=== PATIENT | female | born 1985 ===

== ENCOUNTER 2017-04-08 17:00 | Emergency (ER) | payer OTHER, SELFPAY ==
[2017-04-08 17:08] VITALS: BP 158/120; PULSE 98; RESP 18; TEMP 99.2; O2SAT 99
[2017-04-08] MEDS ORDERED: Tmp-Smz 800 mg-160 mg DS Tab PO STA (17:30)
--- NOTE | 2017-04-08 17:33 | ED PDOC ---
HPI: Female Pain Time Seen by Provider: 04/08/17 17:15 Chief Complaint (Nursing): Female Genitourinary Chief Complaint (Provider): dysuria History Per: Patient History/Exam Limitations: no limitations Onset/Duration Of Symptoms: Days ( x 4) Current Symptoms Are (Timing): Still Present Quality Of Discomfort: Burning Associated Symptoms: Fever, Diarrhea, Urinary Symptoms. denies: Nausea, Vomiting Additional Complaint(s): Darlin Melo is a 32 year old female, recently diagnosed with hypertension, who presents to the ED with complaints of dysuria with associated frequency, itching, pelvic pain, fever and diarrhea ongoing for the past 4 days. Patient reports fever resolved same day and diarrhea resolved the following day but other symptoms continue. Patient denies any nausea or vomiting. Patient reports taking uricalm 99.5 mg with minimal relief and reports a history of UTI in the past. PMD: Denny Moore MD Abnormal Vaginal Bleeding: No Past Medical History Reviewed: Historical Data, Nursing Documentation, Vital Signs Vital Signs: Last Vital Signs Temp 99.2 F 04/08/17 17:07 Pulse 98 H 04/08/17 17:07 Resp 18 04/08/17 17:07 BP 158/120 H 04/08/17 17:07 Pulse Ox 99 04/08/17 17:07 - Medical History PMH: HTN - Surgical History Surgical History: No Surg Hx - Family History Family History: States: Unknown Family Hx - Social History Current smoker - smoking cessation education provided: No Alcohol: None Drugs: Denies - Home Medications Home Medications: Ambulatory Orders Medication Instructions Recorded Cephalexin [Keflex] 500 mg PO TID #15 cap 12/03/14 Miconazole Nitrate [Monistat 3] 200 mg VG DAILY #3 sup 12/03/14 Phenazopyridine [Pyridium] 200 mg PO TID #9 tab 04/08/17 Sulfamethoxazole/Trimethoprim 1 tab PO BID #14 tab 04/08/17 [Bactrim DS 800 mg-160 mg] - Allergies Allergies/Adverse Reactions: Allergies Allergy/AdvReac Type Severity Reaction Status Date / Time No Known Allergies Allergy Verified 04/08/17 17:06 Review of Systems ROS Statement: Except As Marked, All Systems Reviewed And Found Negative Constitutional: Positive for: Fever (resolved) Gastrointestinal: Positive for: Diarrhea (resolved ). Negative for: Nausea, Vomiting Genitourinary Female: Positive for: Dysuria, Frequency, Pelvic Pain, Other ( itching ). Negative for: Incontinence, Hematuria, Vaginal Discharge, Vaginal Bleeding Physical Exam - Reviewed Nursing Documentation Reviewed: Yes Vital Signs Reviewed: Yes - Physical Exam Appears: Positive for: Well, Non-toxic, No Acute Distress Skin: Positive for: Normal Color, Warm, Dry ENT: Positive for: Normal ENT Inspection Neck: Positive for: Normal, Painless ROM, Supple Cardiovascular/Chest: Positive for: Regular Rate, Rhythm Respiratory: Positive for: CNT, Normal Breath Sounds Gastrointestinal/Abdominal: Positive for: Bowel Sounds, Soft, Tenderness ( bilateral suprapubic ). Negative for: Mass, Distended, Guarding, Rebound Back: Positive for: L CVA Tenderness Neurologic/Psych: Positive for: Alert, Oriented - Laboratory Results Urine POC: Negative Urine dip results: Positive for: Nitrate - ECG O2 Sat by Pulse Oximetry: 99 (RA) Pulse Ox Interpretation: Normal Medical Decision Making Medical Decision Making: Initial Impression: UTI Initial Plan: * urine * urine dipstick * urine culture * urinalysis * pyridium * bactrim tab * reevaluation Scribe Attestation: Documented by Liz Sifuentes, acting as a scribe for Bernadine Mathur MD. Provider Scribe Attestation: All medical record entries made by the Scribe were at my direction and personally dictated by me. I have reviewed the chart and agree that the record accurately reflects my personal performance of the history, physical exam, medical decision making, and the department course for this patient. I have also personally directed, reviewed, and agree with the discharge instructions and disposition. Disposition - Clinical Impression Clinical Impression: UTI (urinary tract infection) - Patient ED Disposition Is Patient to be Admitted: No Doctor Will See Patient In The: Office Counseled Patient/Family Regarding: Diagnosis, Need For Followup, Rx Given - Disposition Referrals: Denny De Paz MD [Medical Doctor] - Disposition: Routine/Home Disposition Time: 17:41 Condition: STABLE Prescriptions: Phenazopyridine [Pyridium] 200 mg PO TID #9 tab Sulfamethoxazole/Trimethoprim [Bactrim DS 800 mg-160 mg] 1 tab PO BID #14 tab Instructions: Urinary Tract Infection in Women (ED) - POA Present On Arrival: None
[2017-04-08] MEDS ORDERED: Tmp-Smz 800 mg-160 mg DS Tab ONE (17:35)
[2017-04-08 18:51] LABS: RBC URINE < 1 /hpf (0-3); URINE BILIRUBIN NEGATIVE (NEGATIVE); URINE BLOOD SMALL (NEGATIVE); URINE COLOR AMBER (YELLOW); URINE GLUCOSE (UA) 150 mg/dL (Normal); URINE KETONE NEGATIVE (NEGATIVE); URINE LEUKOCYTE ESTERASE MOD Leu/uL (Negative); URINE PROTEIN 100 mg/dL (NEGATIVE); WBC URINE 19 /hpf (0-5)
== END 2017-04-08 18:06 | disposition home or self-care (01) ==
LOC: H.ER 17:00
DX: N39.0 Urinary tract infection, site not specified (principal); R50.9 Fever, unspecified

== ENCOUNTER 2017-09-26 08:15 | Emergency (ER) | payer SELFPAY ==
[2017-09-26 08:27] VITALS: RESP 20
[2017-09-26 08:39] VITALS: BP 147/64; O2SAT 98
[2017-09-26 09:39] LABS: BASO # 0.1 K/uL (0.0-0.2); BASO % 0.7 % (0.0-2.0); EOS # 0.1 K/uL (0.0-0.7); EOS % 1.1 % (0.0-4.0); HEMATOCRIT 40.6 % (34.0-47.0); LYMPH # 1.3 K/uL (1.0-4.3); LYMPH % 15.3 % (20.0-40.0); MEAN CELL VOLUME 87.5 fl (81.0-99.0); MEAN CORPUSCULAR HEMOGLOBIN 28.6 pg (27.0-31.0); MEAN CORPUSCULAR HGB CONC 32.6 g/dL (33.0-37.0); MEAN PLATELET VOLUME 8.3 fl (7.2-11.7); MONO # 0.4 K/uL (0.0-0.8); MONO % 4.6 % (0.0-10.0); NEUT # 6.4 K/uL (1.8-7.0); NEUT % 78.3 % (50.0-75.0); NRBC % 0.1 % (0.0-0.0); RED CELL DISTRIBUTION WIDTH 14.9 % (11.5-14.5); WHITE BLOOD COUNT 8.2 K/uL (4.8-10.8)
--- NOTE | 2017-09-26 09:51 | ED PDOC ---
HPI: SOB/CHF/COPD Time Seen by Provider: 09/26/17 08:47 Chief Complaint (Nursing): Shortness Of Breath Chief Complaint (Provider): Chest pressure History Per: Patient History/Exam Limitations: no limitations Onset/Duration Of Symptoms: Days (3), Persistent Current Symptoms Are (Timing): Still Present Quality: Pressure Additional Complaint(s): 32yo female with past medical history of hypertension, presents to ED for evaluation of chest pressure for the past 3 days. Patient states the pain is present most of the time and is associated with difficulty breathing. She denies any chest pain, wheeze, cough, fever, dizziness, leg swelling. She denies any other medical complaints. PMD: Dr. Knight Past Medical History Reviewed: Historical Data, Nursing Documentation, Vital Signs Vital Signs: Last Vital Signs Temp 98 F 09/26/17 11:30 Pulse 72 09/26/17 11:30 Resp 20 09/26/17 11:34 BP 147/64 09/26/17 08:39 Pulse Ox 98 09/26/17 11:30 - Medical History PMH: HTN - Surgical History Surgical History: No Surg Hx - Family History Family History: States: No Known Family Hx - Home Medications Home Medications: Ambulatory Orders Medication Instructions Recorded Cephalexin [Keflex] 500 mg PO TID #15 cap 12/03/14 Miconazole Nitrate [Monistat 3] 200 mg VG DAILY #3 sup 12/03/14 Phenazopyridine [Pyridium] 200 mg PO TID #9 tab 04/08/17 Sulfamethoxazole/Trimethoprim 1 tab PO BID #14 tab 04/08/17 [Bactrim DS 800 mg-160 mg] - Allergies Allergies/Adverse Reactions: Allergies Allergy/AdvReac Type Severity Reaction Status Date / Time No Known Allergies Allergy Verified 09/26/17 08:35 Curb-65 Severity Score - CURB-65 Severity Score Confusion: No Bun >19mg/dl (>7mmol/L): No Respiratory Rate greater than/equal to 30: No Systolic BP <90 or Diastolic BP less than/equal 60mmHg: No Age >64: No Curb-65 Score: 0 Percentage 30-day mortality: 0.6% Wells Criteria for PE - Wells Criteria for Pulmonary Embolism Clinical Signs and Symptoms of DVT: No P.E is #1 Diagnosis, or Equally Likely: No Heart Rate >100: No Immobilization at least 3 days;Surgery previous 4 weeks: No Previous, objectively diagnosed PE or DVT: No Hemoptysis: No Malignancy w/treatment within 6 months, or palliative: No Total Score: 0 Review of Systems ROS Statement: Except As Marked, All Systems Reviewed And Found Negative Constitutional: Negative for: Fever, Chills Cardiovascular: Positive for: Other (chest pressure). Negative for: Chest Pain Respiratory: Positive for: Shortness of Breath Physical Exam - Reviewed Nursing Documentation Reviewed: Yes Vital Signs Reviewed: Yes - Physical Exam Appears: Positive for: Non-toxic, No Acute Distress Head Exam: Positive for: ATRAUMATIC, NORMAL INSPECTION, NORMOCEPHALIC Skin: Positive for: Normal Color, Warm, Dry Eye Exam: Positive for: Normal appearance, EOMI Neck: Positive for: Supple Cardiovascular/Chest: Positive for: Regular Rate, Rhythm. Negative for: Tachycardia Respiratory: Positive for: Normal Breath Sounds. Negative for: Wheezing, Respiratory Distress Gastrointestinal/Abdominal: Positive for: Soft. Negative for: Tenderness Extremity: Positive for: Normal ROM Neurologic/Psych: Positive for: Alert, Oriented - Laboratory Results Result Diagrams: 09/26/17 09:30 09/26/17 09:30 - ECG ECG: Positive for: Interpreted By Me, Viewed By Me ECG Rhythm: Positive for: Normal QRS, Normal ST Segment, Sinus Rhythm. Negative for: ST/T Changes Rate: 84 O2 Sat by Pulse Oximetry: 98 (RA) Pulse Ox Interpretation: Normal - Radiology X-Ray: Viewed By Me, Read By Radiologist X-Ray Interpretation: No Acute Disease Medical Decision Making Medical Decision Making: Time: 911 Impression: Chest pressure, dyspnea Differential: ACS, PE, CHF Plan: -- EKG -- Labs -- Chest x-ray Reassess Scribe Attestation: Documented by Briana Keenan acting as a scribe for Jose Campos MD. Provider Attestation: All medical record entries made by the Scribe were at my direction and personally dictated by me. I have reviewed the chart and agree that the record accurately reflects my personal performance of the history, physical exam, medical decision making, and the department course for this patient. I have also personally directed, reviewed, and agree with the discharge instructions and disposition. Disposition - Clinical Impression Clinical Impression: Dyspnea - Patient ED Disposition Is Patient to be Admitted: No Doctor Will See Patient In The: Office Counseled Patient/Family Regarding: Studies Performed, Diagnosis, Need For Followup - Disposition Referrals: [facility] [Outside] Disposition: Routine/Home Disposition Time: 11:30 Condition: GOOD Additional Instructions: Return for worsening. Follow up with your PCP in 2-3 days. Instructions: Dyspnea (ED) LEANN Risk Score for UA/NSTEMI - LEANN Risk Score Age > 64: NO 3 or more CAD Risk Factors: NO Known CAD (Stenosis greater than 50%): NO Aspirin use in past 7 days: NO Severe Angina: NO EKG ST changes greater than 0.5mm: NO Positive Cardiac Marker: NO LEANN Score: 0 % risk at 14 days of: all cause mortality, new or recurrent WI, or severe recurrent ischemia requiring urgen revascularization: 5%
[2017-09-26 09:53] LABS: BLOOD UREA NITROGEN 19 mg/dl (7-17); CALCIUM 8.6 mg/dL (8.4-10.2); CARBON DIOXIDE 24 mmol/L (22-30); CHLORIDE 107 mmol/L (98-107); GFR AFRICAN-AMERICAN > 60; GLUCOSE,RANDOM 105 mg/dL (65-105); SODIUM 141 mmol/l (132-148)
--- NOTE | 2017-09-26 10:30 | RAD ---
HISTORY: dyspnea COMPARISON: None available. TECHNIQUE: Chest, one view. FINDINGS: Mild external artifact limits evaluation of the lung apices. LUNGS: No focal consolidation. Please note that chest x-ray has limited sensitivity for the detection of pulmonary masses. PLEURA: No significant pleural effusion identified. No definite pneumothorax . CARDIOVASCULAR: The cardiomediastinal silhouette appears within normal limits of size. OSSEOUS STRUCTURES: No acute osseous abnormality identified. VISUALIZED UPPER ABDOMEN: Unremarkable. OTHER FINDINGS: None. IMPRESSION: No focal consolidation, significant pleural effusion, or definite pneumothorax identified.
[2017-09-26] MEDS ORDERED: Potassium Chloride 20 mEq ER Tab PO ONE (11:20)
[2017-09-26 11:34] VITALS: TEMP 98
--- NOTE | 2017-09-26 12:00 | CARD ---
APPROVED REPORT EKG Measurement Heart [id number] <Conclusion> Normal sinus rhythm Cannot rule out Inferior infarct, age undetermined Abnormal ECG
[2017-10-05 11:25] VITALS: PULSE 84
== END 2017-09-26 11:35 | disposition home or self-care (01) ==
LOC: H.ER 08:15
DX: R06.02 Shortness of breath (principal); R07.89 Other chest pain; R06.00 Dyspnea, unspecified; I10 Essential (primary) hypertension

== ENCOUNTER 2017-12-07 20:03 | Emergency (ER) | payer SELFPAY ==
[2017-12-07 20:12] VITALS: BMI 24.1
[2017-12-07] MEDS ORDERED: Sodium Chloride 0.9% 1,000 ML IV SCH ×2 (22:30→23:45)
[2017-12-07 23:22] LABS: ALB/GLOB RATIO 1.2 (1.0-2.1); ALBUMIN 3.9 g/dL (3.5-5.0); ALT/SGPT 27 U/L (9-52); AST/SGOT 22 U/L (14-36); BLOOD UREA NITROGEN 17 mg/dl (7-17); CALCIUM 8.6 mg/dL (8.4-10.2); GFR AFRICAN-AMERICAN > 60; GFR NON-AFRICAN AMERICAN 57; LIPASE 269 U/L (23-300)
[2017-12-07 23:26] LABS: BASO % 0.1 % (0.0-2.0); EOS # 0.1 K/uL (0.0-0.7); EOS % 0.9 % (0.0-4.0); HEMOGLOBIN 13.2 g/dL (12.0-16.0); LYMPH # 0.5 K/uL (1.0-4.3); LYMPH % 3.5 % (20.0-40.0); MEAN CELL VOLUME 89.4 fl (81.0-99.0); MEAN CORPUSCULAR HEMOGLOBIN 30.1 pg (27.0-31.0); MEAN CORPUSCULAR HGB CONC 33.7 g/dL (33.0-37.0); MEAN PLATELET VOLUME 9.2 fl (7.2-11.7); MONO # 0.6 K/uL (0.0-0.8); MONO % 4.8 % (0.0-10.0); NEUT % 90.7 % (50.0-75.0); PLATELET COUNT 199 K/uL (130-400); RBC 4.38 Mil/uL (3.80-5.20); RED CELL DISTRIBUTION WIDTH 13.9 % (11.5-14.5); WHITE BLOOD COUNT 13.3 K/uL (4.8-10.8)
[2017-12-07] MEDS ORDERED: Potassium Chloride 20 mEq/15 ml LIQ UD PO ONE (23:34)
--- NOTE | 2017-12-08 00:33 | ED PDOC ---
HPI: Abdomen Time Seen by Provider: 12/07/17 21:46 Chief Complaint (Nursing): Abdominal Pain Chief Complaint (Provider): Abdominal Pain History Per: Patient History/Exam Limitations: no limitations Current Symptoms Are (Timing): Still Present Associated Symptoms: Nausea, Vomiting Additional Complaint(s): 32 yo F complains of epigastric pain since yesterday described as constant, associated with nausea and vomiting. Pain is worse with eating. Notes taking Motrin with no relief. Otherwise: (-) diarrhea, (-) radiation, (-) cough, (-) back pain, (-) fever, (-) CP, (-) SOB, (-) urinary symptoms, (-) melena, (-) hematochezia. Has no history of prior abdominal surgery PMD: Dr. Flores Past Medical History Reviewed: Historical Data, Nursing Documentation, Vital Signs Vital Signs: Last Vital Signs Temp 98.5 F 12/07/17 20:12 Pulse 98 H 12/07/17 20:12 Resp 16 12/07/17 20:12 BP 154/99 H 12/07/17 20:12 Pulse Ox 100 12/08/17 05:49 - Medical History PMH: HTN - Surgical History Surgical History: No Surg Hx - Family History Family History: States: Unknown Family Hx - Social History Current smoker - smoking cessation education provided: No Alcohol: None Drugs: Denies - Home Medications Home Medications: Ambulatory Orders Medication Instructions Recorded Cephalexin [Keflex] 500 mg PO TID #15 cap 12/03/14 Miconazole Nitrate [Monistat 3] 200 mg VG DAILY #3 sup 12/03/14 Phenazopyridine [Pyridium] 200 mg PO TID #9 tab 04/08/17 Sulfamethoxazole/Trimethoprim 1 tab PO BID #14 tab 04/08/17 [Bactrim DS 800 mg-160 mg] Esomeprazole Magnesium [Nexium] 20 mg PO DAILY #30 each 12/08/17 - Allergies Allergies/Adverse Reactions: Allergies Allergy/AdvReac Type Severity Reaction Status Date / Time No Known Allergies Allergy Verified 12/07/17 20:12 Review of Systems ROS Statement: Except As Marked, All Systems Reviewed And Found Negative (As per HPI, otherwise negative) Constitutional: Negative for: Fever Gastrointestinal: Positive for: Nausea, Vomiting, Abdominal Pain (Epigastric pain). Negative for: Diarrhea, Melena, Hematochezia Physical Exam - Physical Exam Comments: GENERAL APPEARANCE: Patient is awake, alert, oriented x 3, in no acute distress SKIN: Warm, dry; (-) cyanosis. EYES: (-) conjunctival pallor, (-) scleral icterus. ENMT: Mucous membranes are moist. NECK: (-) tenderness, (-) stiffness, (-) lymphadenopathy. CHEST AND RESPIRATORY: (-) rales, (-) rhonchi, (-) wheezes; breath sounds equal bilaterally. HEART AND CARDIOVASCULAR: (-) irregularity; (-) murmur, (-) gallop. ABDOMEN AND GI: (-) distention. Bowel sounds active; tenderness in RUQ ( epigastric). (-) guarding, (-) rebound, (-) palpable masses, (-) CVA tenderness. EXTREMITIES: (-) deformity, (-) edema, (+) distal pulses. NEURO AND PSYCH: Mental status as above; (-) focal findings. - Laboratory Results Result Diagrams: 12/07/17 23:01 12/07/17 23:01 - ECG O2 Sat by Pulse Oximetry: 100 (RA) Pulse Ox Interpretation: Normal Medical Decision Making Medical Decision Making: Time: 21:47 Plan: CBC w/ differential Pepcid 20mg IVP Sodium chloride 1L IV Sodium chloride 1L IV Ondansetron 4mg IVP Potassium chloride 20meq PO Urine culture IV insertion (saline lock) Urine test Urinalysis Abdomen US Reevalaution Labs reviewed : WBC 13, +bands of 8, K 3.5, UA (-) for infection. US abdomen : FINDINGS: Liver: The liver is normal in size, shape and echotexture measuring 11.6 cm in length. No evidence of intrahepatic biliary duct dilatation. There is appropriate hepatopetal flow within the portal vein. Gallbladder: The gallbladder appears partially contracted. No gallstones or significant gallbladder wall thickening. Negative sonographic Torre's sign. Common bile duct: The bile ducts are normal in caliber. The common bile duct measures 3 mm. No stones. No dilation. Pancreas: Unremarkable as visualized. Right kidney: The right kidney measures 7.5 cm in length and is unremarkable in appearance. No stones. No hydronephrosis. Aorta: The abdominal aorta is normal in caliber. No aneurysm. Inferior vena cava: The visualized portions of the IVC are unremarkable. IMPRESSION: No acute abnormalities are identified. Dictated and Authenticated by: David Gonzalez MD 12/08/2017 5:16 AM Eastern Time ([place] & [place]) On re-evaluation, patient reports improvement of symptoms, denies any nausea, abdominal pain, CP, SOB or cough. On exam, patient remains AAOx3, in no acute distress, is smiling, not toxic appearing. On exam, lungs clear to auscultation, cardiac RRR, abdomen soft, non- tender. Diagnostic results d/w the patient in great detail. Diagnosis of dyspepsia d/w the patient. Based on history, exam and diagnostic results, plan will be for outpatient follow up. +Bands noted on patient's lab, however there is no clear source of infection. Patient advised to f/u this abnormal lab result with pmd or the clinic. Patient instructed to follow-up with pmd or the clinic in 1-2 days without fail. Advised to take medication as prescribed. Return to the emergency room at any time for any new or worsening symptoms. Patient states she fully agrees with and understands discharge instructions. States that she agrees with the plan and disposition. Verbalized and repeated discharge instructions and plan. I have given the patient opportunity to ask any additional questions. Scribe Attestation: Documented by Natasha Lopez acting as a scribe for ARCENIO Stovall PA-C. Scribe Attestation: All medical record entries made by the Scribe were at my direction and personally dictated by me. I have reviewed the chart and agree that the record accurately reflects my personal performance of the history, physical exam, medical decision making, and the department course for this patient. I have also personally directed, reviewed, and agree with the discharge instructions and disposition. Disposition - Clinical Impression Clinical Impression: Abdominal pain, Dyspepsia Counseled Patient/Family Regarding: Studies Performed, Diagnosis, Need For Followup, Rx Given - Disposition Referrals: [facility] [Outside] Disposition: Routine/Home Disposition Time: 05:30 Condition: IMPROVED Additional Instructions: Thank you for letting us take care of you today. You were treated for abdominal pain, dyspepsia. The emergency medical care you received today was directed at your acute symptoms. If you were prescribed any medication, please fill it and take as directed. It may take several days for your symptoms to resolve. Return to the Emergency Department if your symptoms worsen, do not improve, or if you have any other problems. Please contact your doctor in 2 days for re-evaluation and follow up / or call one of the physicians/clinics you have been referred to that are listed on the Patient Visit Information form that is included in your discharge packet. Bring any paperwork you were given at discharge with you along with any medications you are taking to your follow up visit. Our treatment cannot replace ongoing medical care by a primary care provider (PCP) outside of the emergency department. Thank you for allowing the [facility] team to be part of your care today. Prescriptions: Esomeprazole Magnesium [Nexium] 20 mg PO DAILY #30 each Instructions: Chronic Indigestion (ED), Abdominal Pain (ED) Forms: [employer] ([place]), [facility] ED School/Work Excuse Print Language: KAZAKH
[2017-12-08] MEDS ORDERED: Potassium Chloride 20 mEq ER Tab PO ONE (01:21)
[2017-12-08] MEDS ORDERED: Potassium Chloride 10 mEq ER Tab PO STA (01:24)
[2017-12-08 01:34] LABS: BANDS 8 % (0-2); EOSINOPHIL 1 % (0-7); LYMPHOCYTE 6 % (20-50); MONOCYTE 7 % (0-10); NEUTROPHIL 78 % (42-75); PLATELET ESTIMATE NORMAL (NORMAL); TOTAL CELLS COUNTED 100
[2017-12-08 04:56] LABS: SQUAMOUS EPITHIAL 5 /hpf (0-5); URINE BACTERIA RARE (<OCC); URINE BILIRUBIN NEGATIVE (NEGATIVE); URINE BLOOD NEGATIVE (NEGATIVE); URINE CLARITY SLIGHTY-CLOUDY (Clear); URINE COLOR YELLOW (YELLOW); URINE GLUCOSE (UA) NEG (Normal); URINE LEUKOCYTE ESTERASE NEG Leu/uL (Negative); URINE NITRATE NEGATIVE (NEGATIVE); URINE PROTEIN 100 mg/dL (NEGATIVE); URINE UROBILINOGEN 0.2-1.0 mg/dL (0.2-1.0)
[2017-12-08 07:35] VITALS: BP 110/70; PULSE 96; RESP 18; TEMP 98.6; O2SAT 100
--- NOTE | 2017-12-08 12:31 | US ---
HISTORY: Epigastric pain COMPARISON: None. TECHNIQUE: Sonographic evaluation of the right upper quadrant of the abdomen. FINDINGS: LIVER: Liver measures approximately 11.6 cm in length. Normal echogenicity of the liver parenchyma. No mass. No intrahepatic bile duct dilatation. GALLBLADDER: Unremarkable. No gallstones. No pericholecystic fluid or sonographic Torre sign COMMON BILE DUCT: Measures 2.8 mm. No stones. No dilatation. PANCREAS: Unremarkable as visualized. No mass. No ductal dilatation. RIGHT KIDNEY: Measures 7.5 x 2.8 x 4.6 cm in length. Normal echogenicity. No calculus, mass, or hydronephrosis. AORTA: No aneurysmal dilatation. IVC: Unremarkable. OTHER FINDINGS: None . IMPRESSION: Unremarkable limited abdominal ultrasound
== END 2017-12-08 05:51 | disposition home or self-care (01) ==
LOC: H.ER 20:03
DX: R10.13 Epigastric pain (principal); K30 Functional dyspepsia; I10 Essential (primary) hypertension
CPT/HCPCS: 76705; 80053; 81003; 81025; 83690; 85025; 87086; 96374; 96375; 99283; J2405

== ENCOUNTER 2017-12-10 10:27 | Observation (INO) | payer SELFPAY ==
[2017-12-10 10:27] VITALS: BMI 24.1
[2017-12-10] MEDS ORDERED: Sodium Chloride 0.9% 1,000 ML IV STA (11:40)
[2017-12-10] MEDS ORDERED: Iohexol 240 (50 ml) PO ONE (11:51)
[2017-12-10] MEDS ORDERED: Iohexol 240 (50 ml) ONE (12:43)
[2017-12-10 13:25] LABS: BASO % 0.3 % (0.0-2.0); EOS # 0.1 K/uL (0.0-0.7); HEMOGLOBIN 12.5 g/dL (12.0-16.0); LYMPH # 1.5 K/uL (1.0-4.3); LYMPH % 19.6 % (20.0-40.0); MEAN CELL VOLUME 89.7 fl (81.0-99.0); MEAN CORPUSCULAR HEMOGLOBIN 30.6 pg (27.0-31.0); MEAN CORPUSCULAR HGB CONC 34.1 g/dL (33.0-37.0); MEAN PLATELET VOLUME 8.9 fl (7.2-11.7); MONO # 0.5 K/uL (0.0-0.8); MONO % 5.7 % (0.0-10.0); NEUT # 5.8 K/uL (1.8-7.0); NEUT % 73.4 % (50.0-75.0); NRBC % 0.1 % (0.0-0.0); RBC 4.09 Mil/uL (3.80-5.20); RED CELL DISTRIBUTION WIDTH 14.1 % (11.5-14.5); WHITE BLOOD COUNT 7.9 K/uL (4.8-10.8)
[2017-12-10 13:40] LABS: ALB/GLOB RATIO 1.1 (1.0-2.1); ALBUMIN 3.6 g/dL (3.5-5.0); ALT/SGPT 27 U/L (9-52); AST/SGOT 19 U/L (14-36); BLOOD UREA NITROGEN 12 mg/dl (7-17); CALCIUM 8.7 mg/dL (8.4-10.2); GFR AFRICAN-AMERICAN > 60; GFR NON-AFRICAN AMERICAN > 60; LIPASE 740 U/L (23-300)
[2017-12-10 14:11] LABS: SQUAMOUS EPITHIAL 6 /hpf (0-5); URINE BACTERIA RARE (<OCC); URINE BILIRUBIN NEGATIVE (NEGATIVE); URINE BLOOD NEGATIVE (NEGATIVE); URINE CLARITY SLIGHTY-CLOUDY (Clear); URINE COLOR YELLOW (YELLOW); URINE GLUCOSE (UA) NEG (Normal); URINE LEUKOCYTE ESTERASE NEG Leu/uL (Negative); URINE NITRATE NEGATIVE (NEGATIVE); URINE PROTEIN 100 mg/dL (NEGATIVE); URINE UROBILINOGEN 0.2-1.0 mg/dL (0.2-1.0)
[2017-12-10] MEDS ORDERED: Iohexol 300 100 ML IJ ONE (14:36)
[2017-12-10] MEDS ORDERED: Sodium Chloride 0.9% 50 ML IV ONE (14:37)
--- NOTE | 2017-12-10 15:18 | CT ---
PROCEDURE: CT Abdomen and Pelvis with contrast HISTORY: Vomiting and Right-sided upper abdominal pain 5 days duration. Elevated lipase By history, negative test (concurrent with this examination). COMPARISON: None. TECHNIQUE: Contrast dose: 95 cc Omnipaque 300 Radiation dose: Total exam DLP = 431.78 mGy-cm. This CT exam was performed using one or more of the following dose reduction techniques: Automated exposure control, adjustment of the mA and/or kV according to patient size, and/or use of iterative reconstruction technique. FINDINGS: LOWER THORAX: Unremarkable. LIVER: Hepatic steatosis. No focal masses. No intrahepatic bile duct dilatation or perihepatic ascites. GALLBLADDER AND BILE DUCTS: Unremarkable. PANCREAS: Unremarkable. No gross lesion or ductal dilatation. SPLEEN: Unremarkable. ADRENALS: Unremarkable. No mass. KIDNEYS AND URETERS: Unremarkable. No hydronephrosis. No solid mass. VASCULATURE: Unremarkable. No aortic aneurysm. BOWEL: Unremarkable. No obstruction. No gross mural thickening. APPENDIX: Retrocecal appendix. Mild thickening of the wall of the appendix which displays contrast-enhancing characteristics consistent with acute appendicitis. The patient presents with atypical pain without an elevated white count and an elevated lipase. PERITONEUM: Unremarkable. No free fluid. No free air. LYMPH NODES: Unremarkable. No enlarged lymph nodes. BLADDER: Unremarkable. REPRODUCTIVE: Unremarkable. BONES: No acute fracture. OTHER FINDINGS: None. IMPRESSION: 1. Edematous appendix with thickening of the wall of the appendix consistent with early/ acute appendicitis. 2. Unremarkable pancreas. Communication of results I discussed the findings with the attending physician in the emergency department Dr. Castillo at 15:10.
[2017-12-10] MEDS ORDERED: Piperacillin/Tazobact 4.5 GM in Sodium Chloride 0.9% 100 ML IVPB STA (15:48)
--- NOTE | 2017-12-10 16:30 | CP.PCM.CON ---
History of Present Illness - History of Present Illness History of Present Illness: General Surgery Dr. Calvillo 32 y/o F w/ PMHx of HTN presents to the ED c/o abd pain. Pt was here on for RUQ/epigastric abd pain and multiple episodes of NBNB vomiting. Abd U/S was negative for gallbladder pathology and pt was sent home w/ antacid medication. Pt reports continued epigastric abd pain throughout the weekend w/ migration down to the RLQ. Pain is unchanged in intensity and described as crampy. Pain did not improve w/ antacids and nothing made pain worse. Pt admits to 2 episodes NBNB vomiting yesterday. Pt admits to chills but denies fever, D/ C. PMHx: see above Meds: reviewed in chart NKDA PSHx: denies SHx: denies tobacco, EtOH, drug use FHx: noncontributory Review of Systems - Review of Systems All systems: reviewed and no additional remarkable complaints except (see HPI) Past Patient History - Past Social History Smoking Status: Never Smoked - CARDIAC Hx Hypertension: Yes - PSYCHIATRIC Hx Substance Use: No - SURGICAL HISTORY Hx Surgeries: No - ANESTHESIA Hx Anesthesia: No Meds Allergies/Adverse Reactions: Allergies Allergy/AdvReac Type Severity Reaction Status Date / Time No Known Allergies Allergy Verified 12/07/17 20:12 - Medications Medications: Current Medications Hydromorphone HCl (Dilaudid) 0.5 mg IVP Q3 PRN PRN Reason: Pain, moderate (4-7) Stop: 12/12/17 16:17 Piperacillin Sod/Tazobactam (Sod 4.5 gm/ Sodium Chloride) 100 mls @ 100 mls/hr IVPB STAT STA PRN Reason: Protocol Stop: 12/10/17 16:47 Piperacillin Sod/Tazobactam (Sod 3.375 gm/ Sodium Chloride) 100 mls @ 100 mls/ hr IVPB Q6 TEE PRN Reason: Protocol Sodium Chloride (Sodium Chloride 0.9%) 1,000 mls @ 100 mls/hr IV .Q10H TEE Ondansetron HCl (Zofran Inj) 4 mg IVP Q4 PRN PRN Reason: Nausea/Vomiting Physical Exam - Constitutional Appears: Non-toxic, No Acute Distress - Head Exam Head Exam: NORMAL INSPECTION - Eye Exam Eye Exam: Normal appearance - ENT Exam ENT Exam: Mucous Membranes Moist - Respiratory Exam Respiratory Exam: NORMAL BREATHING PATTERN. absent: Accessory Muscle Use, Respiratory Distress - Cardiovascular Exam Cardiovascular Exam: absent: Bradycardia, Tachycardia - GI/Abdominal Exam GI & Abdominal Exam: Soft, Tenderness (minimal TTP). absent: Distended, Firm, Guarding, Rebound, Rigid - Expanded GI/Abdominal Exam Expanded Expanded GI & Abdominal Exam: McBurney's Point Tenderness. absent: Obturator Sign, Psoas Sign, Rovsing's Sign - Extremities Exam Extremities exam: Positive for: normal inspection - Neurological Exam Neurological exam: Alert, Oriented x3 - Psychiatric Exam Psychiatric exam: Normal Affect, Normal Mood - Skin Skin Exam: Dry, Intact, Normal Color, Warm Results - Vital Signs Recent Vital Signs: Last Vital Signs Temp 97 F L 12/10/17 10:51 Pulse 54 L 12/10/17 10:51 Resp 18 12/10/17 10:51 BP 140/98 H 12/10/17 10:51 Pulse Ox 100 12/10/17 10:51 - Labs Result Diagrams: 12/10/17 13:10 12/10/17 13:10 Labs: Laboratory Results - last 24 hr 12/10/17 12/10/17 12/10/17 13:10 13:10 13:10 WBC 7.9 RBC 4.09 Hgb 12.5 Hct 36.7 MCV 89.7 MCH 30.6 MCHC 34.1 RDW 14.1 Plt Count 206 MPV 8.9 Neut % (Auto) 73.4 Lymph % (Auto) 19.6 L [place] % (Auto) 5.7 Eos % (Auto) 1.0 Baso % (Auto) 0.3 Neut # (Auto) 5.8 Lymph # (Auto) 1.5 [place] # (Auto) 0.5 Eos # (Auto) 0.1 Baso # (Auto) 0.0 Sodium 141 Potassium 3.3 L Chloride 105 Carbon Dioxide 27 Anion Gap 12 BUN 12 Creatinine 1.0 Est GFR ( Amer) > 60 Est GFR (Non-Af Amer) > 60 Random Glucose 94 Calcium 8.7 Total Bilirubin 0.4 AST 19 ALT 27 Alkaline Phosphatase 89 Total Protein 6.9 Albumin 3.6 Globulin 3.3 Albumin/Globulin Ratio 1.1 Lipase 740 H Urine Color Yellow Urine Clarity Slighty-cloudy Urine pH 6.0 Ur Specific [place] 1.017 Urine Protein 100 Urine Glucose (UA) Neg Urine Ketones Negative Urine Blood Negative Urine Nitrate Negative Urine Bilirubin Negative Urine Urobilinogen 0.2-1.0 Ur Leukocyte Esterase Neg Urine RBC (Auto) 3 Urine Microscopic WBC 1 Ur Squamous Epith Cells 6 H Urine Bacteria Rare - Imaging and Cardiology CT scan - abdomen Status: Image reviewed by me, Report reviewed by me Assessment & Plan - Assessment and Plan (Free Text) Assessment: 32 y/o F w/ abd pain and possible early, acute appendicitis - IVF, IV Abx - CLD; NPO @[place] - pain management - anti-emetic - OR scheduled for Sunday morning for lap appy - consent to be obtained Pt discussed w/ Dr. Karli Beckett DO PGY2
[2017-12-10] MEDS: Sodium Chloride 0.9% 1,000 ML IV SCH (17:19)
--- NOTE | 2017-12-10 18:09 | CP.PCM.HP ---
History of Present Illness - History of Present Illness History of Present Illness: 32 yo female with history of HTN came in complaining of epigastric pain since 4 days ago associated with multiple bouts of vomiting on day 1. Vomiting had since subsided and had only one episode today but pain had persisted, on and off , non-radiating and was not relieved with antacid. Denied diarrhea or constipation. Also denied fever or chills. Present on Admission - Present on Admission Any Indicators Present on Admission: No History of DVT/PE: No History of Uncontrolled Diabetes: No Urinary Catheter: No Decubitus Ulcer Present: No Review of Systems - Review of Systems All systems: reviewed and no additional remarkable complaints except (aside from those mentioned above, 12 point system review were negative by me) Past Patient History - Tetanus Immunizations Tetanus Immunization: Unknown - Past Social History Smoking Status: Never Smoked Alcohol: None - CARDIAC Hx Cardiac Disorders: Yes (hypertension) Hx Hypertension: Yes - PULMONARY Hx Respiratory Disorders: No - NEUROLOGICAL Hx Neurological Disorder: No - HEENT Hx HEENT Problems: No - RENAL Hx Chronic Kidney Disease: No - ENDOCRINE/METABOLIC Hx Endocrine Disorders: No - HEMATOLOGICAL/ONCOLOGICAL Hx Blood Disorders: No - INTEGUMENTARY Hx Dermatological Problems: No - MUSCULOSKELETAL/RHEUMATOLOGICAL Hx Musculoskeletal Disorders: No - GASTROINTESTINAL Hx Gastrointestinal Disorders: No - GENITOURINARY/GYNECOLOGICAL Hx Genitourinary Disorders: No - PSYCHIATRIC Hx Psychophysiologic Disorder: No Hx Substance Use: No - SURGICAL HISTORY Hx Surgeries: No - ANESTHESIA Hx Anesthesia: No Meds Allergies/Adverse Reactions: Allergies Allergy/AdvReac Type Severity Reaction Status Date / Time No Known Allergies Allergy Verified 12/07/17 20:12 Physical Exam - Constitutional Appears: No Acute Distress - Head Exam Head Exam: ATRAUMATIC - Eye Exam Eye Exam: absent: Scleral icterus - ENT Exam ENT Exam: Mucous Membranes Moist - Neck Exam Neck exam: Negative for: Meningismus - Respiratory Exam Respiratory Exam: absent: Rhonchi, Wheezes, Respiratory Distress - Cardiovascular Exam Cardiovascular Exam: REGULAR RHYTHM, +S1, +S2 - GI/Abdominal Exam GI & Abdominal Exam: Soft, Tenderness (mild tenderness over epigastric region, no RLQ tenderness even on deep palpation) - Rectal Exam Rectal Exam: Deferred - Extremities Exam Extremities exam: Negative for: pedal edema - Back Exam Back exam: absent: tenderness - Neurological Exam Neurological exam: Alert, Oriented x3 - Psychiatric Exam Psychiatric exam: Normal Affect - Skin Skin Exam: Dry, Intact Results - Vital Signs Recent Vital Signs: Last Vital Signs Temp 98.9 F 12/10/17 17:34 Pulse 65 12/10/17 17:34 Resp 15 12/10/17 17:34 BP 130/84 18 17:34 Pulse Ox 99 12/10/17 17:33 - Labs Result Diagrams: 12/10/17 13:10 12/10/17 13:10 Labs: Laboratory Results - last 24 hr 12/10/17 12/10/17 12/10/17 13:10 13:10 13:10 WBC 7.9 RBC 4.09 Hgb 12.5 Hct 36.7 MCV 89.7 MCH 30.6 MCHC 34.1 RDW 14.1 Plt Count 206 MPV 8.9 Neut % (Auto) 73.4 Lymph % (Auto) 19.6 L [place] % (Auto) 5.7 Eos % (Auto) 1.0 Baso % (Auto) 0.3 Neut # (Auto) 5.8 Lymph # (Auto) 1.5 [place] # (Auto) 0.5 Eos # (Auto) 0.1 Baso # (Auto) 0.0 Sodium 141 Potassium 3.3 L Chloride 105 Carbon Dioxide 27 Anion Gap 12 BUN 12 Creatinine 1.0 Est GFR ( Amer) > 60 Est GFR (Non-Af Amer) > 60 Random Glucose 94 Calcium 8.7 Total Bilirubin 0.4 AST 19 ALT 27 Alkaline Phosphatase 89 Total Protein 6.9 Albumin 3.6 Globulin 3.3 Albumin/Globulin Ratio 1.1 Lipase 740 H Urine Color Yellow Urine Clarity Slighty-cloudy Urine pH 6.0 Ur Specific [place] 1.017 Urine Protein 100 Urine Glucose (UA) Neg Urine Ketones Negative Urine Blood Negative Urine Nitrate Negative Urine Bilirubin Negative Urine Urobilinogen 0.2-1.0 Ur Leukocyte Esterase Neg Urine RBC (Auto) 3 Urine Microscopic WBC 1 Ur Squamous Epith Cells 6 H Urine Bacteria Rare Assessment & Plan - Assessment and Plan (Free Text) Assessment: 32 yo female with history of HTN came in complaining of epigastric pain since 4 days ago associated with multiple bouts of vomiting on day 1. Vomiting had since subsided and had only one episode today but pain had persisted, on and off , non-radiating and was not relieved with antacid. Denied diarrhea or constipation. Also denied fever or chills. 1. Abdominal Pain R/O Acute Appendicitis keep NPO continue IV hydration continue IV Zosyn 3.375gm IV q 6hrs CT scan: consistent with early appendicitis surgical consult with Dr Calvillo 2. HTN BP stable on Amlodipine 5mg PO daily
[2017-12-10] MEDS: Piperacillin/Tazobact 3.375 GM in Sodium Chloride 0.9% 100 ML IVPB SCH (22:12)
[2017-12-11] MEDS: Sodium Chloride 0.9% 1,000 ML IV SCH ×3 (02:30→14:12)
[2017-12-11] MEDS: Piperacillin/Tazobact 3.375 GM in Sodium Chloride 0.9% 100 ML IVPB SCH ×4 (04:37→16:04)
[2017-12-11 06:18] LABS: BASO # 0.1 K/uL (0.0-0.2); BASO % 0.8 % (0.0-2.0); EOS # 0.2 K/uL (0.0-0.7); EOS % 2.5 % (0.0-4.0); HEMOGLOBIN 12.1 g/dL (12.0-16.0); LYMPH # 1.9 K/uL (1.0-4.3); MEAN CELL VOLUME 90.1 fl (81.0-99.0); MEAN CORPUSCULAR HEMOGLOBIN 30.5 pg (27.0-31.0); MEAN CORPUSCULAR HGB CONC 33.9 g/dL (33.0-37.0); MEAN PLATELET VOLUME 9.2 fl (7.2-11.7); MONO # 0.5 K/uL (0.0-0.8); MONO % 6.7 % (0.0-10.0); NEUT # 5.1 K/uL (1.8-7.0); NRBC % 0.1 % (0.0-0.0); RBC 3.97 Mil/uL (3.80-5.20); RED CELL DISTRIBUTION WIDTH 13.9 % (11.5-14.5); WHITE BLOOD COUNT 7.7 K/uL (4.8-10.8)
[2017-12-11 06:43] LABS: CALCIUM 8.1 mg/dL (8.4-10.2)
--- NOTE | 2017-12-11 13:25 | CP.PCM.PN ---
Subjective - Date & Time of Evaluation Date of Evaluation: 12/11/17 Time of Evaluation: 10:20 - Subjective Subjective: 32 y/o F evaluated and examined by bedside. Pt reports feeling well, abdominal pain has resolved with medications administered. Pt afebrile, NPO, aware she will be going on surgery today. Objective - Vital Signs/Intake and Output Vital Signs (last 24 hours): Temp Pulse Resp BP Pulse Ox 98.3 F 65 18 128/84 98 12/11/17 08:30 12/11/17 08:30 12/11/17 08:30 12/11/17 08:30 12/11/17 08:30 - Medications Medications: Current Medications Hydromorphone HCl (Dilaudid) 0.5 mg IVP Q3 PRN PRN Reason: Pain, moderate (4-7) Stop: 12/12/17 16:17 Piperacillin Sod/Tazobactam (Sod 3.375 gm/ Sodium Chloride) 100 mls @ 100 mls/ hr IVPB Q6 TEE PRN Reason: Protocol Last Admin: 12/11/17 09:08 Dose: Not Given Sodium Chloride (Sodium Chloride 0.9%) 1,000 mls @ 150 mls/hr IV .Q6H40M [facility] Last Admin: 12/11/17 08:19 Dose: 150 mls/hr Ondansetron HCl (Zofran Inj) 4 mg IVP Q4 PRN PRN Reason: Nausea/Vomiting Pantoprazole Sodium (Protonix Inj) 40 mg IVP DAILY [facility] Last Admin: 12/11/17 08:19 Dose: 40 mg - Labs Labs: 12/11/17 06:10 12/11/17 06:10 - Constitutional Appears: Well, No Acute Distress - Head Exam Head Exam: ATRAUMATIC, NORMAL INSPECTION - Eye Exam Eye Exam: EOMI, Normal appearance - ENT Exam ENT Exam: Mucous Membranes Moist - Neck Exam Neck Exam: Full ROM. absent: Meningismus - Respiratory Exam Respiratory Exam: Clear to Ausculation Bilateral, NORMAL BREATHING PATTERN - Cardiovascular Exam Cardiovascular Exam: REGULAR RHYTHM, +S1, +S2 - GI/Abdominal Exam GI & Abdominal Exam: Soft, Tenderness (on epigastric and RLQ), Normal Bowel Sounds. absent: Rigid, Rebound Additional comments: Rovsing's sign positive. Psoas and obturator's sign positive. Assessment and Plan - Assessment and Plan (Free Text) Assessment: 32 Y/o F with a PMHx of HTN admitted for management of acute appendicitis. Plan: 1. Acute Appendicitis - CT abdomen/pelvis showed edematous appendix with thickening wall, consistent with early acute appendicitis. Unremarkable pancreas. - General Surgery on board, Dr Calvillo. - Laparoscopic appendectomy to be performed today. - Zofran PRN - Zosyn Q6H. 2. HTN - BP stable - C/w Amlodipine 5mg PO daily 3. Elevated Lipase - Unrmerkable pancreas on CT of abdomen/pelvis. - Trending down - Serum Lipase 740-high yesterday 12/10/17 - Serum Lipase 412-high today 12/11/17 4. Elevated Creatinine - Possible acute pre-renal injury. - IV NSS 0.9% increased to 150ml/hr. - Follow BMP. 5. DVT prophylaxis - SCDs - No anticoagulation as pt is scheduled for surgery.
[2017-12-11] MEDS ORDERED: Bupivacaine 0.5% Inj(30mL) ONE (15:49)
[2017-12-11] MEDS ORDERED: Lidocaine 1% Inj (20ml) ONE (15:49)
[2017-12-11] MEDS ORDERED: Propofol 10 mg/ml Inj (20 ML) ONE (15:59)
[2017-12-11] MEDS ORDERED: Midazolam 2 MG/2 ML VIAL ONE (15:59)
[2017-12-11] MEDS ORDERED: Rocuronium 10 mg/ml (5 ml) ONE (15:59)
[2017-12-11] MEDS ORDERED: Succinylcholine 200 mg/10 ml Inj IV ONE (16:00)
[2017-12-11] MEDS ORDERED: Neostigmine Methylsulfate 3mg/3ml Syringe IV ONE (16:02)
[2017-12-11] MEDS ORDERED: Lactated Ringer's 1,000 ML IV ONE ×2 (16:20→17:33)
[2017-12-11] MEDS ORDERED: Piperacillin/Tazobact 3.375 gm Inj IVPB ONE (16:25)
[2017-12-11] MEDS ORDERED: Sevoflurane - Inhalation Anesthetic Liq (250 ml) ONE (16:25)
[2017-12-11] MEDS ORDERED: Lidocaine 1% Inj (20ml) IJ ONE (16:40)
[2017-12-11] MEDS ORDERED: Bupivacaine 0.5% 50 ML IJ ONE ×2 (16:47)
--- NOTE | 2017-12-11 17:34 | PCM.SURG1 ---
Surgeon's Initial Post Op Note - Surgeon's Notes Surgeon: Dr Calvillo Warehouse Clerk: Dr Norman PGY3 Type of Anesthesia: General Endo Pre-Operative Diagnosis: acute appendicitis Operative Findings: as above Post-Operative Diagnosis: as above Operation Performed: laparoscopic appendectomy Specimen/Specimens Removed: appendix Estimated Blood Loss: EBL {In ML}: 5 Blood Products Given: N/A Drains Used: No Drains Post-Op Condition: Good Date of Surgery/Procedure: 12/11/17 Time of Surgery/Procedure: 17:34
[2017-12-11] MEDS ORDERED: Oxycodone/Acetaminophen 5/325 mg Tab PO PRN (17:36)
--- NOTE | 2017-12-11 17:36 | CP.PCM.PCO ---
Physician Communication Note - Physician Communication Note Physician Communication Note: Pt OK for D/C tonight if tolerates diet and pain well controlled
[2017-12-11] MEDS ORDERED: Lactated Ringer's 1,000 ML IV SCH (18:00)
[2017-12-11 19:03] VITALS: BP 153/95; PULSE 78; RESP 17; TEMP 98.1; O2SAT 98
--- NOTE | 2017-12-11 20:03 | CP.PCM.DIS ---
Provider - Provider Date of Admission: 12/10/17 15:39 Attending physician: Gus Melo MD Consults: Dr Calvillo Time Spent in preparation of Discharge (in minutes): 25 Diagnosis - Discharge Diagnosis (1) Appendicitis Status: Acute Comment: had appendectomy and did well. follow up with Dr Calvillo in a week (2) HTN (hypertension) Status: Chronic Comment: BP slightly elevated. continue Amlodipine 5mg PO daily Hospital Course - Lab Results Lab Results: Most Recent Lab Values WBC 7.7 K/uL (4.8-10.8) 12/11/17 06:10 RBC 3.97 Mil/uL (3.80-5.20) 12/11/17 06:10 Hgb 12.1 g/dL (12.0-16.0) 12/11/17 06:10 Hct 35.7 % (34.0-47.0) 12/11/17 06:10 MCV 90.1 fl (81.0-99.0) 12/11/17 06:10 MCH 30.5 pg (27.0-31.0) 12/11/17 06:10 MCHC 33.9 g/dL (33.0-37.0) 12/11/17 06:10 RDW 13.9 % (11.5-14.5) 12/11/17 06:10 Plt Count 204 K/uL (130-400) 12/11/17 06:10 MPV 9.2 fl (7.2-11.7) 12/11/17 06:10 Neut % (Auto) 66.0 % (50.0-75.0) 12/11/17 06:10 Lymph % (Auto) 24.0 % (20.0-40.0) 12/11/17 06:10 [place] % (Auto) 6.7 % (0.0-10.0) 12/11/17 06:10 Eos % (Auto) 2.5 % (0.0-4.0) 12/11/17 06:10 Baso % (Auto) 0.8 % (0.0-2.0) 12/11/17 06:10 Neut # (Auto) 5.1 K/uL (1.8-7.0) 12/11/17 06:10 Lymph # (Auto) 1.9 K/uL (1.0-4.3) 12/11/17 06:10 [place] # (Auto) 0.5 K/uL (0.0-0.8) 12/11/17 06:10 Eos # (Auto) 0.2 K/uL (0.0-0.7) 12/11/17 06:10 Baso # (Auto) 0.1 K/uL (0.0-0.2) 12/11/17 06:10 Sodium 143 mmol/l (132-148) 12/11/17 06:10 Potassium 3.7 MMOL/L (3.6-5.0) 12/11/17 06:10 Chloride 106 mmol/L (98-107) 12/11/17 06:10 Carbon Dioxide 28 mmol/L (22-30) 12/11/17 06:10 Anion Gap 13 (10-20) 12/11/17 06:10 BUN 9 mg/dl (7-17) 12/11/17 06:10 Creatinine 1.3 mg/dl (0.7-1.2) H 12/11/17 06:10 Est GFR ( Amer) 57 12/11/17 06:10 Est GFR (Non-Af Amer) 47 12/11/17 06:10 Random Glucose 86 mg/dL (65-105) 12/11/17 06:10 Calcium 8.1 mg/dL (8.4-10.2) L 12/11/17 06:10 Total Bilirubin 0.4 mg/dl (0.2-1.3) 12/10/17 13:10 AST 19 U/L (14-36) 12/10/17 13:10 ALT 27 U/L (9-52) 12/10/17 13:10 Alkaline Phosphatase 89 U/L (38-126) 12/10/17 13:10 Total Protein 6.9 G/DL (6.3-8.2) 12/10/17 13:10 Albumin 3.6 g/dL (3.5-5.0) 12/10/17 13:10 Globulin 3.3 gm/dL (2.2-3.9) 12/10/17 13:10 Albumin/Globulin Ratio 1.1 (1.0-2.1) 12/10/17 13:10 Lipase 412 U/L (23-300) H 12/11/17 08:08 Urine Color Yellow (YELLOW) 12/10/17 13:10 Urine Clarity Slighty-cloudy (Clear) 12/10/17 13:10 Urine pH 6.0 (5.0-8.0) 12/10/17 13:10 Ur Specific [place] 1.017 (1.003-1.030) 12/10/17 13:10 Urine Protein 100 mg/dL (NEGATIVE) 12/10/17 13:10 Urine Glucose (UA) Neg mg/dL (Normal) 12/10/17 13:10 Urine Ketones Negative mg/dL (NEGATIVE) 12/10/17 13:10 Urine Blood Negative (NEGATIVE) 12/10/17 13:10 Urine Nitrate Negative (NEGATIVE) 12/10/17 13:10 Urine Bilirubin Negative (NEGATIVE) 12/10/17 13:10 Urine Urobilinogen 0.2-1.0 mg/dL (0.2-1.0) 12/10/17 13:10 Ur Leukocyte Esterase Neg [place]/uL (Negative) 12/10/17 13:10 Urine RBC (Auto) 3 /hpf (0-3) 12/10/17 13:10 Urine Microscopic WBC 1 /hpf (0-5) 12/10/17 13:10 Ur Squamous Epith Cells 6 /hpf (0-5) H 12/10/17 13:10 Urine Bacteria Rare (<OCC) 12/10/17 13:10 - Hospital Course Hospital Course: 32 yo female with history of HTN came in complaining of epigastric pain associated with multiple bouts of vomiting. CT scan of abdomen was consistent with early stage appendicitis. Patient appendectomy and did well. Able to tolerate regular diet. Patient discharge in stable condition. Discharge Exam - Head Exam Head Exam: ATRAUMATIC, NORMAL INSPECTION - Eye Exam Eye Exam: absent: Scleral icterus - ENT Exam ENT Exam: Mucous Membranes Moist - Respiratory Exam Respiratory Exam: absent: Rhonchi, Wheezes, Respiratory Distress - Cardiovascular Exam Cardiovascular Exam: REGULAR RHYTHM, +S1, +S2 - GI/Abdominal Exam GI & Abdominal Exam: Soft. absent: Tenderness - Rectal Exam Rectal Exam: Deferred - Neurological Exam Neurological exam: Alert, Oriented x3 - Psychiatric Exam Psychiatric exam: Normal Affect - Skin Skin Exam: Dry, Intact Discharge Plan - Discharge Medications Prescriptions: oxyCODONE/Acetaminophen [Percocet 5/325 mg Tab] 1 tab PO Q4 PRN #10 tab PRN Reason: Pain, Moderate (4-7) - Follow Up Plan Condition: GOOD Disposition: HOME/ ROUTINE Instructions: Appendicitis (DC), Acute Abdominal Pain (DC) Referrals: Manish Calvillo MD [Staff Provider] -
--- NOTE | 2017-12-12 01:31 | OP ---
PROCEDURE DATE: 12/11/2017 PREOPERATIVE DIAGNOSIS: Acute appendicitis. POSTOPERATIVE DIAGNOSIS: Acute appendicitis. PROCEDURE DONE: Laparoscopic appendectomy. SURGEON: Manish Calvillo MD PIERCING MILL OPERATOR: Rigo Norman, PGY-3 resident. TYPE OF ANESTHESIA: General endotracheal tube anesthesia. ESTIMATED BLOOD LOSS: Around 10 mL. DRAINS: None. PATHOLOGY: Appendix was sent to the pathology. COMPLICATIONS: None. INTRAOPERATIVE FINDINGS: This 32-year-old female who was diagnosed with acute appendicitis and the patient was consented for laparoscopic appendectomy, possible open. Brought to the OR, placed supine on the operating table. After induction of the anesthesia, the abdomen was prepped and draped in the usual sterile fashion. A supraumbilical transverse incision was made after incising skin, subcutaneous tissue and fascia. The Elenita port was placed. Pneumo was created. Another 5 mm port was placed in suprapubic region, 12 mm port was placed in left lower quadrant. After that grasper and dissector was introduced and appendix was identified. Major appendix was resected with harmonic scalpel. The base of the appendix was resected with [place] and appendix was taken out to the umbilical port site and sent to the table for the pathology. There was no pelvic collection and there was no perihepatic or periappendicular collection. After proper hemostasis, all the port was taken out under vision. Pneumo was deflated. Umbilical port site was closed in two layers, fascia with 0-Vicryl interrupted sutures, skin with 4-0 Monocryl, and dry sterile dressing was applied. The patient tolerated the procedure well. Count of instruments and gauze was correct. There was no apparent complication. Manish Calvillo MD [facility] CENTERStephanie
== END 2017-12-11 21:00 | disposition home or self-care (01) ==
LOC: H.ER 10:27 → H.ERHOLD 15:39 → H.MEDSURG1 17:46
DX: K35.80 Unspecified acute appendicitis (principal); I10 Essential (primary) hypertension
CPT/HCPCS: 36415; 44970; 74177; 80048; 80053; 81003; 81025; 83690; 85025; 96365; 96374; 99284; C9113; G0378; J0330; J1170; J2001; J2250; J2405; J2543; J2704; J2710; J3010; J7040; J7120; Q9966; Q9967

== ENCOUNTER 2018-10-14 05:01 | Emergency (ER) | payer SELFPAY ==
[2018-10-14 05:01] VITALS: BMI 24.1
--- NOTE | 2018-10-14 05:40 | ED PDOC ---
HPI: Female Pain Time Seen by Provider: 10/14/18 05:31 Chief Complaint (Nursing): Female Genitourinary History Per: Patient Additional Complaint(s): Pt. c/o dysuria and frequency x 2-3 days. Reports a hx of frequent UTI's. Of note, pt. used OTC AZO without relief. Denies back pain, flank pain, hematuria, fever, chills, incontinence, hx of pyelonephritis. Past Medical History Reviewed: Historical Data, Nursing Documentation, Vital Signs Vital Signs: Last Vital Signs Temp 98.5 F 10/14/18 05:29 Pulse 91 H 10/14/18 05:29 Resp 16 10/14/18 05:29 BP 153/92 H 10/14/18 05:29 Pulse Ox 97 10/14/18 05:29 - Medical History PMH: HTN Denies: Chronic Kidney Disease - Surgical History Surgical History: Denies: Appendectomy - Family History Family History: States: Unknown Family Hx - Home Medications Home Medications: Ambulatory Orders Medication Instructions Recorded Esomeprazole Magnesium [Nexium] 20 mg PO DAILY #30 each 12/08/17 Control 1 tab PO DAILY 12/10/17 amLODIPine [Norvasc] 5 mg PO DAILY 12/10/17 oxyCODONE/Acetaminophen [Percocet 1 tab PO Q4 PRN #10 tab 12/11/17 5/325 mg Tab] Nitrofurantoin Macrocrystals 100 mg PO BID #14 cap 10/14/18 [Macrobid] - Allergies Allergies/Adverse Reactions: Allergies Allergy/AdvReac Type Severity Reaction Status Date / Time No Known Allergies Allergy Verified 10/14/18 05:28 Review of Systems ROS Statement: Except As Marked, All Systems Reviewed And Found Negative Genitourinary Female: Positive for: Dysuria, Frequency Physical Exam - Physical Exam Appears: Positive for: Well, Non-toxic, No Acute Distress Skin: Positive for: Normal Color, Warm. Negative for: Rash Eye Exam: Positive for: Normal appearance Gastrointestinal/Abdominal: Positive for: Normal Exam, Soft. Negative for: Tenderness Back: Positive for: Normal Inspection. Negative for: L CVA Tenderness, R CVA Tenderness Neurologic/Psych: Positive for: Alert, Oriented (x3) - Laboratory Results Urine POC: Negative Urine dip results: Positive for: Blood (trace), Nitrate (positive), Protein (>300). Negative for: Leukocyte Esterase, Ketones, Glucose, Bilirubin - ECG O2 Sat by Pulse Oximetry: 97 - Progress ED Course And Treament: Urine dip, urine C&S ordered. Disposition - Clinical Impression Clinical Impression: Urinary tract infection - Patient ED Disposition Is Patient to be Admitted: No - Disposition Referrals: [facility] [Outside] Disposition: Routine/Home Disposition Time: 05:40 Condition: STABLE Additional Instructions: FOLLOW UP WITH [facility] FOR FURTHER EVALUATION RETURN TO ED IMMEDIATELY IF SYMPTOMS WORSEN ADRIEL FRIEDMAN, thank you for letting us take care of you today. Your provider was Ciaran Brar MD and you were treated for BURNING,PAINFUL URINATION. The emergency medical care you received today was directed at your acute symptoms. If you were prescribed any medication, please fill it and take as directed. It may take several days for your symptoms to resolve. Return to the Emergency Department if your symptoms worsen, do not improve, or if you have any other problems. Please contact your doctor or call one of the physicians/clinics you have been referred to that are listed on the Patient Visit Information form that is included in your discharge packet. Bring any paperwork you were given at discharge with you along with any medications you are taking to your follow up visit. Our treatment cannot replace ongoing medical care by a primary care provider outside of the emergency department. Thank you for allowing the [facility] team to be part of your care today. If you had an X-Ray or CT scan: A Radiologist will review the ED reading if any change in treatment is needed we will contact you. If you had a blood, urine, or wound culture: It will take several days for the results, if any change in treatment is needed we will contact you. If you had an STI test: It will take 48 hours for the results. Please call after 1 week if you have not heard back. Prescriptions: Nitrofurantoin Macrocrystals [Macrobid] 100 mg PO BID #14 cap Instructions: Urinary Tract Infection, Adult (DC) Print Language: ALGERIAN
[2018-10-14 05:57] VITALS: BP 138/88; PULSE 87; RESP 18; TEMP 98.1; O2SAT 99
== END 2018-10-14 05:56 | disposition home or self-care (01) ==
LOC: H.ER 05:01
DX: N39.0 Urinary tract infection, site not specified (principal)